=== PATIENT | female | born 1995 | race Caucasian/White ===

== ENCOUNTER → 2018-01-15 | Outpatient (CLI) | payer OTHER ==
[~2018-01-15] MED LIST: AEROECLIPSE II1 EACH MC; ALBU90OI; ALBU90OI INH; AMIT25 PO; AMOX500 PO; AZIT200SU PO; BUDE200IP INH; CETI10 PO; CITA20 PO; CODACE30 PO; CODACEE120 PO; Cleocin HCl300 MG PO; DIPH25; Desmopressin A0.2 MG PO; FLUT.05NI; FLUT44OIA; KETO10 PO; MEDR150I IM; MONT5TCH; ONDA4 PO; OXYACE5T PO; PRED10 PO; PRED20 PO; PROM25 PO; Prednisone20 MG PO; Prenatal Compl1 EACH PO; RXCYCL10 PO; RXHYD5325 PO; SALM50IP; SUMA25 PO; VICODIN 5-3001 EACH PO; VITAMIN B6 IM; Ventolin Soln3 ML INH; Verotin-Gr Cap1 EACH
== END | disposition home or self-care (01) ==
LOC: LAB SHORT 19:31 → LAB 19:31
PROVIDERS: Obstetrics & Gynecology
DX: O60.2 Term delivery with preterm labor (principal)
CPT/HCPCS: 82731

== ENCOUNTER 2018-03-15 00:45 | Inpatient (IN) | payer OTHER ==
[~2018-03-15] VITALS: Ht 152.4 cm; Wt 85.4 kg
[2018-03-15 11:35] LABS: BASOPHILS ABSOLUTE AUTO 0.03 K/mm3 (0.00-0.23); BASOPHILS PERCENT AUTO 0 % (0-2); EOSINOPHILS ABSOLUTE AUTO 0.06 K/mm3 (0.00-0.68); EOSINOPHILS PERCENT AUTO 0 % (0-6); Hematocrit 35.9 % (33.0-51.0); Hemoglobin 11.5 g/dL (11.5-16.0); IMMATURE GRAN ABSOLUTE AUTO 0.09 K/mm3 (0.00-0.10); IMMATURE GRAN PERCENT AUTO 1 % (0-1); LYMPHOCYTES ABSOLUTE AUTO 2.07 K/mm3 (0.84-5.20); LYMPHOCYTES PERCENT AUTO 15 % (21-46); MONOCYTES ABSOLUTE AUTO 0.98 K/mm3 (0.16-1.47); MONOCYTES PERCENT AUTO 7 % (4-13); Mean Corpuscular HGB 27.4 pg (26.0-34.0); Mean Corpuscular Volume 86 fL (80-100); NEUTROPHILS ABSOLUTE AUTO 10.95 K/mm3 (1.96-9.15); NEUTROPHILS PERCENT AUTO 77 % (41-73); Platelet Count 261 K/mm3 (150-400); RDW Standard Deviation 39.8 fL (35.1-46.3); Red Blood Cell Count 4.19 M/mm3 (3.80-5.20); White Blood Cell Count 14.18 K/mm3 (4.00-11.30)
== END 2018-03-16 12:36 | disposition home or self-care (01) | DRG 775 ==
LOC: OBS 00:45 → BC 00:45 → OBS 01:56 → BC 01:57
PROVIDERS: Obstetrics & Gynecology
PROC: 10E0XZZ Delivery of Products of Conception, External Approach (ICD-10-PCS; principal; 2018-03-16)
DX: O62.3 Precipitate labor (principal); O87.2 Hemorrhoids in the puerperium; O99.354 Diseases of the nervous system complicating childbirth; O77.0 Labor and delivery complicated by meconium in amniotic fluid; O99.62 Diseases of the digestive system complicating childbirth; K21.9 Gastro-esophageal reflux disease without esophagitis; O99.52 Diseases of the respiratory system complicating childbirth; G43.909 Migraine, unspecified, not intractable, without status migrainosus; J45.909 Unspecified asthma, uncomplicated; Z79.899 Other long term (current) drug therapy; Z88.8 Allergy status to other drugs, medicaments and biological substances; Z86.19 Personal history of other infectious and parasitic diseases; Z3A.38 38 weeks gestation of pregnancy; Z37.0 Single live birth
CPT/HCPCS: 36415; 85025; J1885; J2210; J2590

== ENCOUNTER 2021-09-06 04:04 | Inpatient (IN) | payer OTHER ==
[~2021-09-06] VITALS: Ht 152.4 cm; Wt 88.2 kg
[~2021-09-06 04:04] MED LIST changes: +Accuneb1.25 MG/3 INH; +BUPR150ER PO; +HYDPAM25 PO; +Pulmicort Fle180 MCG INH; +Ventolin/Prove6.7 GM INH
[2021-09-06] MEDS ORDERED: PRENATAL TABLE1 EAC2 PO (04:21)
[2021-09-06 04:48] LABS: BASOPHILS ABSOLUTE AUTO 0.04 K/mm3 (0.00-0.23); BASOPHILS PERCENT AUTO 0 % (0-2); EOSINOPHILS ABSOLUTE AUTO 0.12 K/mm3 (0.00-0.68); EOSINOPHILS PERCENT AUTO 1 % (0-6); Hematocrit 38.2 % (33.0-51.0); Hemoglobin 12.9 g/dL (11.5-16.0); IMMATURE GRAN PERCENT AUTO 1 % (0-1); LYMPHOCYTES ABSOLUTE AUTO 1.96 K/mm3 (0.84-5.20); LYMPHOCYTES PERCENT AUTO 17 % (21-46); MONOCYTES ABSOLUTE AUTO 0.76 K/mm3 (0.16-1.47); MONOCYTES PERCENT AUTO 7 % (4-13); Mean Corpuscular HGB 29.9 pg (26.0-34.0); Mean Corpuscular HGB Conc 33.8 g/dL (31.5-36.5); Mean Corpuscular Volume 89 fL (80-100); Mean Platelet Volume 9.9 fL (9.1-12.4); NEUTROPHILS ABSOLUTE AUTO 8.26 K/mm3 (1.96-9.15); NEUTROPHILS PERCENT AUTO 73 % (41-73); Platelet Count 256 K/mm3 (150-400); RDW Coefficient Variation 13.2 % (11.7-14.2); RDW Standard Deviation 43.1 fL (35.1-46.3); Red Blood Cell Count 4.31 M/mm3 (3.80-5.20); White Blood Cell Count 11.24 K/mm3 (4.00-11.30)
--- NOTE | 2021-09-06 07:15 | NUR ---
some question if pt has von willibrands, no history, dr bernardo is getting us one, pt reports was a possible diagnosis for von willibrands, but 2 pregnancys ago, pt reports lots of labs were done and she was cleared. up to bathroom denies lightheadedness or dizzyness. small amount of vaginal bleeding. pt changed into her cloths.
[2021-09-07 05:03] LABS: BASOPHILS ABSOLUTE AUTO 0.03 K/mm3 (0.00-0.23); BASOPHILS PERCENT AUTO 0 % (0-2); EOSINOPHILS ABSOLUTE AUTO 0.13 K/mm3 (0.00-0.68); EOSINOPHILS PERCENT AUTO 1 % (0-6); Hematocrit 37.5 % (33.0-51.0); Hemoglobin 12.6 g/dL (11.5-16.0); IMMATURE GRAN ABSOLUTE AUTO 0.07 K/mm3 (0.00-0.10); IMMATURE GRAN PERCENT AUTO 1 % (0-1); LYMPHOCYTES ABSOLUTE AUTO 2.39 K/mm3 (0.84-5.20); LYMPHOCYTES PERCENT AUTO 21 % (21-46); MONOCYTES ABSOLUTE AUTO 0.69 K/mm3 (0.16-1.47); MONOCYTES PERCENT AUTO 6 % (4-13); Mean Corpuscular HGB 29.8 pg (26.0-34.0); Mean Corpuscular HGB Conc 33.6 g/dL (31.5-36.5); Mean Corpuscular Volume 89 fL (80-100); Mean Platelet Volume 9.7 fL (9.1-12.4); NEUTROPHILS PERCENT AUTO 71 % (41-73); Platelet Count 240 K/mm3 (150-400); RDW Coefficient Variation 13.3 % (11.7-14.2); RDW Standard Deviation 43.3 fL (35.1-46.3); Red Blood Cell Count 4.23 M/mm3 (3.80-5.20); White Blood Cell Count 11.51 K/mm3 (4.00-11.30)
[2021-09-07] MEDS ORDERED: Percocet 5-3251 EACH PO (09:49)
--- NOTE | 2021-09-07 11:20 | NUR ---
DC INSTRUCTIONS GONE OVER WITH PT, PT VERBALIZES UNDERSTANDING, REPORTS THAT WHEN SHE TAKES A DEEP BREATH IN SHE HAS A SHARP IN HER MID LOWER BACK BILATERALLY. LISTED TO BS, CLEAR BILATERALLY, BIOX 96-97% DONE ON BOTH HANDS, NO DIFFERENCE, NO DIFFICULTY BREATHING. TENDER TO TAPPING BILATERALLY, ENCOURAGED TO PUSH FLUIDS, IF WORSENS, TO CALL DR PETTY RIGHT AWAY OR GO THE ER. PT REPORTS DIDNT FEEL THIS WAY YESTERDAY STARTED EARLY THIS MORNING, SIGNS AND SYMTPOMS OF UTI DISCUSSED AND A TEMP OF 100.[address] PETTY
--- NOTE | 2021-09-07 11:25 | NUR ---
DC INSTRUCTIONS GONE OVER WITH PATIENT. DENIES ANY QUESTIONS. WAITING FOR SOME BABY TEST RESULTS THEN WILL BE ABLE TO GO HOME.
--- NOTE | 2021-09-07 14:51 | NUR ---
DC HOME, AMBULATE OUT, DENIES ANY QUESTIONS, ENCOURAGED TO CALL, HAS PPFU APPT
== END 2021-09-07 14:51 | disposition home or self-care (01) | DRG 807 ==
LOC: OBS 04:04 → BC 04:13
PROVIDERS: ADMIT Obstetrics & Gynecology
PROC: 10E0XZZ Delivery of Products of Conception, External Approach (ICD-10-PCS; principal; 2021-09-07)
PROC: 3E033VJ Introduction of Other Hormone into Peripheral Vein, Percutaneous Approach (ICD-10-PCS; 2021-09-07)
PROC: 10907ZC Drainage of Amniotic Fluid, Therapeutic from Products of Conception, Via Natural or Artificial Opening (ICD-10-PCS; 2021-09-07)
DX: O77.0 Labor and delivery complicated by meconium in amniotic fluid (principal); Z37.0 Single live birth; Z3A.38 38 weeks gestation of pregnancy; Z90.49 Acquired absence of other specified parts of digestive tract; Z98.890 Other specified postprocedural states; Z88.6 Allergy status to analgesic agent
CPT/HCPCS: 36415; 85025; 86850; 86900; 86901; A9270; J2210; J2590; J7120

== ENCOUNTER → 2023-08-22 | Outpatient (CLI) | payer OTHER ==
[~2023-08-22] MED LIST changes: +PRENATAL TABLE1 EAC2 PO; +Percocet 5-3251 EACH PO
== END | disposition home or self-care (01) ==
LOC: LAB SHORT 17:15 → LAB 17:15
DX: S23.9XXA Sprain of unspecified parts of thorax, initial encounter (principal); R30.0 Dysuria; R35.0 Frequency of micturition
CPT/HCPCS: 87086

== ENCOUNTER 2025-04-17 09:52 | Day surgery (SDC) | payer OTHER ==
[~2025-04-17] VITALS: Ht 154.9 cm; Wt 82.2 kg
[~2025-04-17 09:52] MED LIST changes: +Bupivacaine 0.5% W/EPI 1:200000 SDV 30 ML Vial ONE
[2025-04-17] MEDS ORDERED: CeFAZolin Sodium 2,000 MG VIAL ONE (10:04)
[2025-04-17] MEDS ORDERED: Ketorolac Tromethamine 30mg Vial ONE (10:11)
[2025-04-17] MEDS ORDERED: Dexamethasone Sod Phos 10 MG/ML 1ML VIAL ONE (10:11)
[2025-04-17] MEDS ORDERED: FentaNYL Citrate 50 MCG/ML 2 ML Injection ONE (10:11)
[2025-04-17] MEDS ORDERED: Ondansetron HCl 2 MG / ML 2ML Vial ONE (10:11)
--- NOTE | 2025-04-17 10:55 | NUR ---
[facility] IN [facility]ED. CALL LIGHT IN REACH. FRIEND CECILLE AT BEDSIDE PER PATIENT REQUEST. NO NEEDS AT THIS TIME.
[2025-04-17] MEDS ORDERED: ALBUTEROL 108MCG/A A (11:22)
[2025-04-17] MEDS ORDERED: Sugammadex Sodium 200 MG/2ML SDV (100 MG/ML) ONE (12:05)
[2025-04-17] MEDS ORDERED: OxyCODONE 5 mg/Acetamin 325 mg TABLET ONE (13:01)
--- NOTE | 2025-04-17 13:08 | NUR ---
04/17/25 6987 [facility]PE PT STATES THAT PAIN IS A BIT WORSE. ORIGINALLY 7-8. HOWEVER, PRESENTED THE QUESTION AGAIN AND STATES 6-04/09. NOT REALLY PAIN JUST UNCOMFORTABLE. SHE COULD GO HOME WITH THIS PAIN. GAVE HER A PERCODET 5/325MG PO FOR PAIN.
[2025-04-17 13:37] VITALS: BP 117/76
== END 2025-04-17 13:50 | disposition home or self-care (01) ==
LOC: ORSCSDS 09:52
PROVIDERS: Podiatrist Foot & Ankle Surgery
PROC: 0QSN04Z Reposition Right Metatarsal with Internal Fixation Device, Open Approach (ICD-10-PCS; principal; 2025-04-17 12:00)
DX: S92.351A Displaced fracture of fifth metatarsal bone, right foot, initial encounter for closed fracture (principal); W22.09XA Striking against other stationary object, initial encounter; F31.9 Bipolar disorder, unspecified; J45.909 Unspecified asthma, uncomplicated
CPT/HCPCS: A6253; A9270; C1713; J0690; J1100; J1885; J2405; J2704; J3010; J7120